=== PATIENT | male | born 1955 | race Caucasian/White ===

== ENCOUNTER 2021-12-13 20:22 | Observation (INO) | payer OTHER ==
[2021-12-13] MEDS ORDERED: ACETAMINOPHEN 1000 MG/100 ML BAG IVPB ONE (21:14)
[2021-12-13] MEDS ORDERED: morphine CARPU-JECT 4 MG/1 ML DISP.SYRIN IVPUSH ONE (21:14)
[2021-12-13] MEDS ORDERED: SODIUM CHLORIDE 0.9% 500 ML INFUS.BAG IV ONE (21:15)
[2021-12-13] MEDS ORDERED: morphine SULFATE 4 MG/ML VIAL ONE (21:22)
[2021-12-13 21:42] LABS: BASO % 0.4 % (0-2.0); EOS % 1.8 % (0-4.5); HEMATOCRIT 45.8 % (35.4-49); HEMOGLOBIN 15.5 GM/dL (11.7-16.9); LYMPH % 4.9 % (8-40); MCH 31.4 pg (25.7-33.7); MCHC 33.9 g/dl (32.0-35.9); MEAN CELL VOLUME 92.7 fl (80-96); MEAN PLT VOLUME 8.5 fl (7.5-11.1); MONO % 0.9 % (3.8-10.2); PLATELET COUNT 158 10^3/uL (134-434); RBC 4.94 M/mm3 (4.00-5.60); WHITE BLOOD COUNT 6.1 K/mm3 (4.0-10.0)
[2021-12-13 21:49] LABS: INR 1.03 (0.83-1.09); PROTHROMBIN TIME (PATIENT) 11.9 SEC (9.7-13.0)
[2021-12-13 21:52] LABS: ACTIVATED PTT 28.2 SECONDS (25.2-36.5)
[2021-12-13 22:02] LABS: ALBUMIN 3.8 g/dl (3.4-5.0); BLOOD UREA NITROGEN 17.6 mg/dL (7-18); CALCIUM 9.3 mg/dL (8.5-10.1)
[2021-12-13 22:08] LABS: BILIRUBIN,TOTAL 0.6 mg/dL (0.2-1)
[2021-12-13 22:25] LABS: ANISOCYTOSIS 0; MACROCYTOSIS 0
[2021-12-14] MEDS ORDERED: ONDANSETRON 4 MG/2 ML VIAL IVPUSH PRN (02:58)
[2021-12-14] MEDS ORDERED: SODIUM CHLORIDE 1,000 ML IV SCH (03:00)
[2021-12-14 05:04] LABS: ALBUMIN 3.3 g/dl (3.4-5.0); CALCIUM 8.4 mg/dL (8.5-10.1); MAGNESIUM 1.9 mg/dL (1.8-2.4)
[2021-12-14 05:05] LABS: BLOOD UREA NITROGEN 16.3 mg/dL (7-18)
[2021-12-14 05:06] LABS: PHOSPHOROUS 2.6 mg/dL (2.5-4.9)
[2021-12-14 05:07] LABS: CREATININE 0.8 mg/dL (0.55-1.3)
[2021-12-14 05:09] LABS: BILIRUBIN,TOTAL 0.6 mg/dL (0.2-1)
[2021-12-14 05:31] VITALS: BMI 25.8
[2021-12-14 06:50] LABS: URINE APPEARANCE CLEAR; URINE BILIRUBIN NEGATIVE (NEGATIVE); URINE COLOR YELLOW; URINE GLUCOSE (UA) NEGATIVE (NEGATIVE); URINE KETONE 1+ (NEGATIVE); URINE LEUK ESTERASE NEGATIVE (NEGATIVE); URINE NITRITE NEGATIVE (NEGATIVE); URINE PROTEIN TRACE (NEGATIVE); URINE UROBILINOGEN 0.2 mg/dL (0.2-1.0)
[2021-12-14 09:15] LABS: HEMATOCRIT 42.1 % (35.4-49); HEMOGLOBIN 14.4 GM/dL (11.7-16.9); MCH 31.8 pg (25.7-33.7); MCHC 34.3 g/dl (32.0-35.9); MEAN CELL VOLUME 92.7 fl (80-96); MEAN PLT VOLUME 9.2 fl (7.5-11.1); PLATELET COUNT 118 10^3/uL (134-434); RBC 4.54 M/mm3 (4.00-5.60); RDW 12.9 % (11.9-15.9); WHITE BLOOD COUNT 10.5 K/mm3 (4.0-10.0)
[2021-12-14] MEDS: ENOXAPARIN NA (PORCINE) 40 MG/0.4 ML DISP.SYRIN SQ SCH (09:47)
[2021-12-14 10:44] LABS: ANISOCYTOSIS 0; MACROCYTOSIS 0
[2021-12-14] MEDS ORDERED: LACTATED RINGERS SOLUTION 1,000 ML with POTASSIUM CHLORIDE 20 MEQ IV ONE (13:35)
[2021-12-14] MEDS ORDERED: CEFTRIAXONE 1 GM in DEXTROSE 5%-WATER - 50 ML IVPB SCH (13:45)
[2021-12-14] MEDS ORDERED: DEXTROSE 5%-WATER - 50 ML IVPB ONE ×2 (14:09→14:59)
[2021-12-14] MEDS ORDERED: cefTRIAXone SODIUM 1 GM VIAL ONE ×2 (14:09→14:59)
[2021-12-14] MEDS: ACETAMINOPHEN 1000 MG/100 ML BAG IVPB PRN (14:16)
[2021-12-14] MEDS ORDERED: CEFTRIAXONE 1 GM in DEXTROSE 5%-WATER - 50 ML IVPB ONE (14:47)
[2021-12-14] MEDS: AZITHROMYCIN IVPB 500 MG/250 ML BAG IVPB SCH (15:01)
[2021-12-15] MEDS: ACETAMINOPHEN 1000 MG/100 ML BAG IVPB PRN (02:08)
[2021-12-15] MEDS ORDERED: CEFTRIAXONE 2 GM in DEXTROSE 5%-WATER 100 ML IVPB SCH (10:00)
[2021-12-15] MEDS ORDERED: LACTATED RINGERS SOLUTION 1,000 ML/1,000 ML INFUS.BAG IV SCH (10:15)
[2021-12-15] MEDS ORDERED: DEXTROSE 5%-WATER 100 ML IVPB ONE (10:25)
[2021-12-15 10:30] LABS: BASO % 0.3 % (0-2.0); EOS % 1.1 % (0-4.5); HEMATOCRIT 41.4 % (35.4-49); HEMOGLOBIN 13.8 GM/dL (11.7-16.9); LYMPH % 9.1 % (8-40); MCH 31.4 pg (25.7-33.7); MCHC 33.3 g/dl (32.0-35.9); MEAN CELL VOLUME 94.2 fl (80-96); MEAN PLT VOLUME 9.5 fl (7.5-11.1); MONO % 7.6 % (3.8-10.2); NEUT % 81.9 % (42.8-82.8); PLATELET COUNT 123 10^3/uL (134-434); RDW 13.3 % (11.9-15.9); WHITE BLOOD COUNT 6.9 K/mm3 (4.0-10.0)
[2021-12-15 10:47] LABS: CALCIUM 8.1 mg/dL (8.5-10.1)
[2021-12-15 10:48] LABS: BLOOD UREA NITROGEN 17.4 mg/dL (7-18)
[2021-12-15 10:52] LABS: CREATININE 0.8 mg/dL (0.55-1.3)
[2021-12-15 10:53] LABS: BILIRUBIN,TOTAL 0.9 mg/dL (0.2-1); TOT PROT 5.7 g/dl (6.4-8.2)
[2021-12-15 11:00] LABS: ALBUMIN 2.6 g/dl (3.4-5.0)
[2021-12-15] MEDS: ENOXAPARIN NA (PORCINE) 40 MG/0.4 ML DISP.SYRIN SQ SCH (11:03)
[2021-12-15] MEDS: AZITHROMYCIN IVPB 500 MG/250 ML BAG IVPB SCH (11:53)
[2021-12-15] MEDS ORDERED: ACETAMINOPHEN 1000 MG/100 ML BAG IVPB PRN (14:31)
[2021-12-15] MEDS ORDERED: DEXAMETHASONE SOD PHOSPHATE 4 MG/1 ML VIAL ONE ×2 (16:42→17:42)
[2021-12-15] MEDS ORDERED: ROCURONIUM BROMIDE 50 MG/5 ML SYRINGE ONE (16:42)
[2021-12-15] MEDS ORDERED: LIDOCAINE HCL/PF 2% SDV 5ML VIAL ONE (16:42)
[2021-12-15] MEDS ORDERED: PROPOFOL 20 ML ONE ×3 (16:43→18:09)
[2021-12-15] MEDS ORDERED: BUPIVACAINE HCL/PF 0.5% (5MG/ML) 10 ML VIAL ONE (17:04)
[2021-12-15] MEDS ORDERED: ONDANSETRON 4 MG/2 ML VIAL IVPUSH PRN ×2 (17:16→18:56)
[2021-12-15] MEDS ORDERED: HYDROmorphone HCl 2 MG/ML VIAL IVPUSH PRN (17:17)
[2021-12-15] MEDS ORDERED: ACETAMINOPHEN INJECTION 100 ML IVPB ONE (17:20)
[2021-12-15] MEDS ORDERED: LACTATED RINGERS SOLUTION 1,000 ML IV SCH (17:30)
[2021-12-15] MEDS ORDERED: GLYCOPYRROLATE 0.2 MG/1 ML VIAL ONE (17:38)
[2021-12-15] MEDS ORDERED: NEOSTIGMINE METHYLSULFATE 0.5 MG/ML - 10 ML MDV ONE (17:38)
[2021-12-15] MEDS ORDERED: BUPIVACAINE HCL/PF 0.5% (5 MG/ML) 30 ML VIAL IJ ONE (18:31)
[2021-12-15] MEDS ORDERED: KETOROLAC TROMETHAMINE 30 MG/1 ML VIAL IVPUSH PRN (18:49)
[2021-12-15] MEDS: HYDROmorphone HCl 2 MG/ML VIAL IVPUSH PRN ×2 (18:51→19:06)
[2021-12-15] MEDS ORDERED: HYDROmorphone HCl 2 MG/ML VIAL ONE (18:51)
[2021-12-15] MEDS: LACTATED RINGERS SOLUTION 1,000 ML/1,000 ML INFUS.BAG IV SCH (19:40)
[2021-12-16] MEDS: ACETAMINOPHEN 1000 MG/100 ML BAG IVPB SCH ×2 (01:34→06:54)
[2021-12-16 10:05] LABS: BASO % 0.1 % (0-2.0); EOS % 0.1 % (0-4.5); HEMATOCRIT 44.4 % (35.4-49); HEMOGLOBIN 14.8 GM/dL (11.7-16.9); LYMPH % 9.3 % (8-40); MCH 31.5 pg (25.7-33.7); MCHC 33.5 g/dl (32.0-35.9); MEAN CELL VOLUME 94.1 fl (80-96); MEAN PLT VOLUME 9.4 fl (7.5-11.1); MONO % 5.1 % (3.8-10.2); NEUT % 85.4 % (42.8-82.8); PLATELET COUNT 161 10^3/uL (134-434); RBC 4.72 M/mm3 (4.00-5.60); RDW 13.3 % (11.9-15.9); WHITE BLOOD COUNT 5.2 K/mm3 (4.0-10.0)
[2021-12-16] MEDS: LACTATED RINGERS SOLUTION 1,000 ML/1,000 ML INFUS.BAG IV SCH (10:15)
[2021-12-16 10:21] LABS: CALCIUM 8.2 mg/dL (8.5-10.1)
[2021-12-16] MEDS ORDERED: DEXTROSE 5%-WATER 100 ML IVPB ONE (10:21)
[2021-12-16 10:22] LABS: BLOOD UREA NITROGEN 16.7 mg/dL (7-18)
[2021-12-16] MEDS: ENOXAPARIN NA (PORCINE) 40 MG/0.4 ML DISP.SYRIN SQ SCH (10:22)
[2021-12-16] MEDS: CEFTRIAXONE 2 GM in DEXTROSE 5%-WATER 100 ML IVPB SCH (10:24)
[2021-12-16 10:26] LABS: CREATININE 0.8 mg/dL (0.55-1.3)
[2021-12-16] MEDS ORDERED: BEBTELOVIMAB (EUA) 175 MG/2 ML VIAL IVPUSH ONE (12:00)
[2021-12-16 16:07] LABS: SARS-CoV-2 NAA Detected (Not Detected)
[2021-12-16 21:15] LABS: PH,URINE 5.5 (5.0-8.0); URINE APPEARANCE CLEAR; URINE BILIRUBIN NEGATIVE (NEGATIVE); URINE COLOR DK YELLOW; URINE GLUCOSE (UA) NEGATIVE (NEGATIVE); URINE KETONE 2+ (NEGATIVE); URINE LEUK ESTERASE NEGATIVE (NEGATIVE); URINE NITRITE NEGATIVE (NEGATIVE); URINE PROTEIN TRACE (NEGATIVE); URINE UROBILINOGEN 0.2 mg/dL (0.2-1.0)
[2021-12-17] MEDS: oxyCODONE HCL 5 MG TABLET PO PRN ×2 (03:07→10:33)
[2021-12-17] MEDS: LACTATED RINGERS SOLUTION 1,000 ML/1,000 ML INFUS.BAG IV SCH (08:09)
[2021-12-17 10:16] LABS: BASO % 0.2 % (0-2.0); EOS % 2.1 % (0-4.5); HEMATOCRIT 39.3 % (35.4-49); HEMOGLOBIN 13.2 GM/dL (11.7-16.9); LYMPH % 15.3 % (8-40); MCHC 33.6 g/dl (32.0-35.9); MEAN CELL VOLUME 92.2 fl (80-96); MONO % 8.3 % (3.8-10.2); NEUT % 74.1 % (42.8-82.8); PLATELET COUNT 147 10^3/uL (134-434); RBC 4.27 M/mm3 (4.00-5.60); RDW 12.9 % (11.9-15.9); WHITE BLOOD COUNT 4.3 K/mm3 (4.0-10.0)
[2021-12-17] MEDS ORDERED: DEXTROSE 5%-WATER 100 ML IVPB ONE (10:31)
[2021-12-17] MEDS: CEFTRIAXONE 2 GM in DEXTROSE 5%-WATER 100 ML IVPB SCH (10:33)
[2021-12-17] MEDS: ENOXAPARIN NA (PORCINE) 40 MG/0.4 ML DISP.SYRIN SQ SCH (10:34)
[2021-12-17 10:42] LABS: ALBUMIN 2.4 g/dl (3.4-5.0)
[2021-12-17 10:43] LABS: BLOOD UREA NITROGEN 14.1 mg/dL (7-18)
[2021-12-17 10:46] LABS: CREATININE 0.6 mg/dL (0.55-1.3)
[2021-12-17 10:47] LABS: BILIRUBIN,TOTAL 0.7 mg/dL (0.2-1); TOT PROT 5.4 g/dl (6.4-8.2)
[2021-12-17 15:56] VITALS: BP 119/79; PULSE 55; TEMP 98.3
== END 2021-12-17 16:52 | disposition home or self-care (01) ==
LOC: JER 20:22 → JERBED 12-14 01:37 → J6S 12-14 04:42
PROVIDERS: ADMIT Internal Medicine
PROC: 0DTJ4ZZ Resection of Appendix, Percutaneous Endoscopic Approach (ICD-10-PCS; principal; 2021-12-14)
PROC: 3E03329 Introduction of Other Anti-infective into Peripheral Vein, Percutaneous Approach (ICD-10-PCS; 2021-12-14)
PROC: 3E033NZ Introduction of Analgesics, Hypnotics, Sedatives into Peripheral Vein, Percutaneous Approach (ICD-10-PCS; 2021-12-14)
DX: K35.80 Unspecified acute appendicitis (principal); Z85.46 Personal history of malignant neoplasm of prostate; J45.909 Unspecified asthma, uncomplicated; I10 Essential (primary) hypertension; Z90.79 Acquired absence of other genital organ(s)
CPT/HCPCS: 36415; 71045-TC-FY; 74176-TC; 74177-TC; 80048; 80053; 81003; 82550; 83605; 83615; 83690; 83735; 84100; 84443; 85025; 85379; 85610; 85730; 86140; 86850; 86900; 86901; 87086; 88304-TC; 93005; 93010; 94010; 94760; 99285-25; C9803-CS; G0378; M0222; Q0222; Q9967; U0003; U0005

== ENCOUNTER 2024-10-25 06:13 | Emergency (ER) | payer OTHER ==
[2024-10-25 06:18] VITALS: BMI 26.8
[2024-10-25] MEDS ORDERED: ACETAMINOPHEN INJECTION 100 ML ONE (06:43)
[2024-10-25] MEDS ORDERED: FAMOTIDINE 20 MG/50 ML IVPB 20 MG/50 ML MG IVPB ONE ×2 (06:43→07:05)
[2024-10-25] MEDS: ACETAMINOPHEN 1000 MG/100 ML BAG IVPB ONE (07:00)
[2024-10-25] MEDS: SODIUM CHLORIDE 1,000 ML IV STA (07:00)
[2024-10-25] MEDS ORDERED: ONDANSETRON 4 MG/2 ML VIAL ONE (07:04)
[2024-10-25] MEDS: ONDANSETRON 4 MG/2 ML VIAL IVPUSH ONE (07:12)
[2024-10-25] MEDS: FAMOTIDINE 20 MG/50 ML IVPB 20 MG/50 ML MG IVPB ONE (07:12)
[2024-10-25 07:54] LABS: ALBUMIN 3.3 g/dl (3.4-5.0); CALCIUM 8.5 mg/dL (8.5-10.1); MAGNESIUM 2.1 mg/dL (1.8-2.4)
[2024-10-25 07:55] LABS: BLOOD UREA NITROGEN 18.7 mg/dL (7-18)
[2024-10-25 07:57] LABS: CREATININE 0.9 mg/dL (0.55-1.3)
[2024-10-25 07:59] LABS: BILIRUBIN,TOTAL 0.8 mg/dL (0.2-1); TOT PROT 6.4 g/dl (6.4-8.2)
[2024-10-25 08:09] LABS: HEMATOCRIT 50.8 % (35.4-49); HEMOGLOBIN 16.6 GM/dL (11.7-16.9); MCH 30.9 pg (25.7-33.7); MCHC 32.6 g/dl (32.0-35.9); MEAN CELL VOLUME 94.9 fl (80-96); PLATELET COUNT 156 10^3/uL (134-434); RBC 5.35 M/mm3 (4.00-5.60); RDW 13.3 % (11.9-15.9); WHITE BLOOD COUNT 5.1 K/mm3 (4.0-10.0)
[2024-10-25 09:08] LABS: ANISOCYTOSIS 0; MACROCYTOSIS 0
[2024-10-25 12:56] VITALS: BP 167/88; PULSE 54; RESP 17; TEMP 97.6
== END 2024-10-25 13:50 | disposition home or self-care (01) ==
LOC: JER 06:13
PROC: 3E033GC Introduction of Other Therapeutic Substance into Peripheral Vein, Percutaneous Approach (ICD-10-PCS; principal; 2024-10-25)
PROC: 3E033NZ Introduction of Analgesics, Hypnotics, Sedatives into Peripheral Vein, Percutaneous Approach (ICD-10-PCS; 2024-10-25)
PROC: 3E033GC Introduction of Other Therapeutic Substance into Peripheral Vein, Percutaneous Approach (ICD-10-PCS; 2024-10-25)
DX: R11.2 Nausea with vomiting, unspecified (principal); R19.7 Diarrhea, unspecified; R53.1 Weakness; R10.9 Unspecified abdominal pain; R50.9 Fever, unspecified; Z20.822 Contact with and (suspected) exposure to COVID-19
CPT/HCPCS: 0241U-QW; 36415; 74176-TC; 80053; 83690; 83735; 85025; 93005; 93010; 99285-25; J0131